=== PATIENT | female | born 1950 | race Caucasian/White ===

== ENCOUNTER → 2017-02-04 | Outpatient (CLI) | payer MEDICARE, OTHER ==
--- NOTE | 2017-02-05 19:34 | Diagnostic Imaging Report ---
Bilateral screening mammogram 2D views with tomosynthesis The current study was also evaluated with a Computer Aided Detection (CAD) system. INDICATION: Screening. No current complaints stated on the questionnaire. COMPARISON: None available. FINDINGS: The breasts are composed of scattered fibroglandular densities. There are occasional punctate calcifications seen. Allowing for technique and positional differences, no suspicious change is seen. IMPRESSION: No significant change. ACR BI-RADS Category 2: Benign findings. Result letter will be mailed to the patient. Note: At least 10% of breast cancer is not imaged by mammography. Dictated by: Dictated on workstation # [id number]
== END ==
LOC: RAD 14:38
PROVIDERS: ATTEND Nurse Practitioner Family
DX: Z12.31 Encounter for screening mammogram for malignant neoplasm of breast (principal)
CPT/HCPCS: 77067

== ENCOUNTER 2017-11-11 07:35 | Outpatient (CLI) | payer MEDICARE, OTHER ==
[~2017-11-11] VITALS: Ht 170.2 cm; Wt 89.8 kg
[2017-11-11] MEDS ORDERED: LISI40TA PO (10:36)
[2017-11-11] MEDS ORDERED: METO-333 PO (10:36)
[2017-11-12] MEDS ORDERED: HYDR-3812 PO (13:46)
== END 2017-11-11 11:34 ==
LOC: PREOP 07:35
PROVIDERS: ATTEND Surgery
DX: Z01.818 Encounter for other preprocedural examination (principal)

== ENCOUNTER 2017-11-12 07:57 | Day surgery (SDC) | payer MEDICARE, OTHER ==
[~2017-11-12] VITALS: Ht 170.2 cm; Wt 89.8 kg
[~2017-11-12 07:57] MED LIST: LISI40TA PO; METO-333 PO
[2017-11-12] MEDS ORDERED: CLINDAMYCIN 600 MG/50 ML IVPB 50 ML IV ONE (08:45)
[2017-11-12] MEDS ORDERED: MEPERIDINE (DEMEROL) INJ 50 MG/ML IVP PRN (09:30)
[2017-11-12] MEDS ORDERED: morphine INJ 10 MG/ML 1ML (SYR OR VIAL) IVP PRN ×2 (09:30→13:30)
[2017-11-12] MEDS ORDERED: fentaNYL INJECTION 100 MCG/2 ML AMP IVP PRN (09:30)
[2017-11-12] MEDS ORDERED: ONDANSETRON 4 MG/2 ML (SDV) Z0FRAN IVP PRN ×2 (09:30→13:30)
[2017-11-12] MEDS: LACTATED RINGERS 1,000 ML IV PRN ×2 (09:30→12:50)
[2017-11-12] MEDS ORDERED: proPOfol 200 MG/20 ML (DIPRIVAN) VIAL IV ONE ×2 (09:36→12:46)
[2017-11-12] MEDS ORDERED: LIDOCAINE 2% 20 ML (XYLOCAINE) VIAL ONE (09:36)
[2017-11-12] MEDS ORDERED: MIDAZOLAM 2 MG/2 ML (VERSED) VIAL ONE (09:38)
[2017-11-12] MEDS ORDERED: BUP/EPI 0.5% 1:200,000 (SENSORCAINE) 30 ML VIAL ONE (09:40)
[2017-11-12 10:12] VITALS: BP 186/88
--- NOTE | 2017-11-12 11:06 | Progress Note-Pre Operative ---
Pre-Operative Progress Note H&P Reviewed The H&P was reviewed, patient examined and no changes noted. 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
--- NOTE | 2017-11-12 13:31 | Anesthesia-General Post-Op ---
MAC Patient Condition Mental Status/LOC: Same as Preop Cardiovascular: Satisfactory Nausea/Vomiting: Absent Respiratory: Satisfactory Pain: Controlled Complications: Absent Post Op Complications Complications None Follow Up Care/Instructions Patient Instructions None needed. Anesthesiology Discharge Order Discharge Order Patient is doing well, no complaints, stable vital signs, no apparent adverse anesthesia problems. No complications reported per nursing. JAH SMALL CRNA November 12, 2017 13:31
--- NOTE | 2017-11-12 13:45 | Progress Note-Post Operative ---
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 Anesthesia Type CS with local Estimated Blood Loss Estimated blood loss (mL): minimal Specimens/Packing Specimens Removed left upper chest skin lesion NAHOMY MORGAN MD November 12, 2017 1:45 pm
[2017-11-12] MEDS ORDERED: HYDR-3812 PO (13:46)
--- NOTE | 2017-11-12 13:48 | Discharge Inst-Surgical ---
D/C Lap Instructions-EDDIE New, Converted, or Re-Newed RX: RX on Chart Follow Up Appt in 2 weeks Activity as tolerated Regular Diet Symptoms to Report: Fever over 101 degree F, Nausea/Vomiting Infection Signs and Symptoms to report: Increased redness, Foul odor of wound, Increased drainage Bathing instructions: May shower Operative Area Clean/Dry; Keep incision clean/dry If any problems/questions: Contact your physician or go to Emergency Room NAHOMY MORGAN MD November 12, 2017 1:48 pm
[2017-11-12 13:55] VITALS: BP 158/66
[2017-11-12 14:25] VITALS: BP 170/84
[2017-11-12 14:55] VITALS: BP 168/81
--- NOTE | 2017-11-12 18:06 | OPERATIVE REPORT ---
DATE OF SERVICE: 11/12/2017 ATTENDING PRIMARY CARE PHYSICIAN: Dr. Richard. PREOPERATIVE DIAGNOSIS: Lesion mid upper chest left of midline, initially detected 06/2017 with significant growth which became infected. 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 There was also hypertrophic scar identified 5 cm in length. POSTOPERATIVE DIAGNOSIS: Lesion mid upper chest left of midline, initially detected 06/2017 with significant growth which became infected. 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 There was also hypertrophic scar identified 5 cm in length. PROCEDURE: Excision full thickness scar and skin with frozen section 5 x 2 cm in size with intermediate flap reconstruction. SURGEON: Dr. Morgan. ASSEMBLER SEMICONDUCTOR: Jesus Valdivia APRN. ANESTHESIA: Monitored anesthesia care with local. ESTIMATED BLOOD LOSS: Minimal. FINDINGS: No obvious skin tumor. Preliminary pathology reports as negative for squamous cell carcinoma. DISPOSITION: The patient tolerated the procedure well. INDICATIONS: The patient is a 67-year-old female who we have seen before in the past. She had had lesions removed from her right lower extremity which were consistent with basal and squamous cell skin cancer. She also has had a benign lesion removed as well. She had a lesion of the mid upper chest left of midline which was initially detected 06/2017 with significant rapid growth. After one month, the lesion became infected. The lesion was excised on 09/03/2017 which did come back as a spindle cell squamous cell carcinoma with focal extension into the deep margin of resection. There was a hypertrophic scar also identified with the dimensions of the lesion approximately 5 x 2 cm in size. DESCRIPTION OF PROCEDURE: The patient was brought to the operating room, laid supine on the table. After adequate IV pain and sedating medications and monitored anesthesia care, the chest and neck were prepped and draped in standard surgical fashion. A 0.5% Marcaine with epinephrine was then used to anesthetize the overlying skin. Also more distal superiorly and inferiorly, for our flaps. The lesion was then fully excised to the level of the subcutaneous fat using a 15 blade. This was sent to pathology. The subcutaneous fat and skin flaps were then created using electrocautery superiorly and inferiorly using electrocautery. Once this was achieved, there was a good approximation of the skin edges without any tension. We then proceeded with layered closure using a 3-0 Vicryl interrupted sutures on the fascia followed by the subcutaneous tissue, followed by 0 Monocryl running subcuticular suture. Wound was then cleaned and covered with Dermabond. The preliminary pathology was negative for malignancy. The patient tolerated the procedure well. We will start IV and oral pain medication. Once she is tolerating clears, has good pain control with oral pain medication, we will discharge her home. We will have her follow up in approximately two weeks to reevaluate the wound. Job ID: [id number] DocumentID: [id number] Dictated Date: 11/12/2017 13:26:39 Dinkey Locomotive Operator Date: 11/12/2017 18:05:35 Dictated By: NAHOMY MORGAN MD MTDD
== END 2017-11-12 14:55 | disposition home or self-care (01) ==
LOC: SDC 07:57
PROVIDERS: ATTEND Surgery
DX: L91.0 Hypertrophic scar (principal); Z85.828 Personal history of other malignant neoplasm of skin; I10 Essential (primary) hypertension; Z79.899 Other long term (current) drug therapy
CPT/HCPCS: 87081; 88304; 88331

== ENCOUNTER → 2018-05-04 | Outpatient (CLI) | payer MEDICARE, OTHER ==
[~2018-05-04] MED LIST changes: +HYDR-3812 PO
--- NOTE | 2018-05-04 18:57 | Diagnostic Imaging Report ---
INDICATION: Routine screening. Comparison is made with prior mammogram from 02/04/2017. 2-D and 3-D bilateral screening mammography was performed with computer-aided detection (CAD) system. FINDINGS: Scattered fibroglandular densities are identified bilaterally. There are benign calcifications bilaterally. No dominant mass or malignant-appearing microcalcifications are seen. The axillae are unremarkable. IMPRESSION: No mammographic features suspicious for malignancy are identified. ACR BI-RADS Category 2: Benign findings. Result letter will be mailed to the patient. Note: At least 10% of breast cancer is not imaged by mammography. Dictated by: Dictated on workstation # [id number]
== END ==
LOC: RAD 10:50
PROVIDERS: ATTEND Nurse Practitioner Family
DX: Z12.31 Encounter for screening mammogram for malignant neoplasm of breast (principal)
CPT/HCPCS: 77067

== ENCOUNTER → 2019-05-03 | Outpatient (CLI) | payer MEDICARE, OTHER ==
--- NOTE | 2019-05-03 15:44 | Diagnostic Imaging Report ---
INDICATION: Postmenopausal screening for osteoporosis. COMPARISON: None. FINDINGS: AP Spine L1-L4: [BMD (g/cm2): 1.161] [T-Score: -0.3] [Z-Score: 0.8] [BMD Previous: na] [BMD % Change: na] LT Hip Neck: [BMD (g/cm2): 0.848] [T-Score: -1.4] [Z-Score: 0.1] LT Hip Total: [BMD (g/cm2):0.945] [T-Score:-0.5] [Z-Score: 0.5] [BMD Previous: na] [BMD % Change: na] RT Hip Neck: [BMD (g/cm2):0.890] [T-Score:-1.1] [Z-Score:0.2] RT Hip Total: [BMD (g/cm2):0.986] [T-score:-0.2] [Z-Score:0.8] [BMD Previous:na] [BMD % Change:na] *Indicates significant change from prior examination based on 95% confidence level. World Health Organization criteria for BMD interpretation classify patients as Normal (T-score at or above -1.0), Osteopenic (T-score between -1.0 and -2.5) or Osteoporotic (T-score at or below -2.5). LIMITATIONS AND MODIFICATION: None. FRACTURE RISK (FRAX SCORE): The ten year probability of (%): Major Osteoporotic Fracture: [9.3] Hip Fracture: [1.1] IMPRESSION: 1. Osteopenia (Low bone mass). 2. Baseline examination. 3. See below National Osteoporosis Foundation guidelines on when to potentially initiate pharmacologic therapy. Based on the National Osteoporosis Foundation Guidelines, pharmacologic treatment should be initiated in any of the following, unless clinical conditions suggest otherwise: * Any patient with prior fragility fracture of the hip or vertebrae. A spine fracture indicates 5X risk for subsequent spine fracture and 2X risk for subsequent hip fracture. * Osteoporosis (T-score <-2.5). * Postmenopausal women and men age 50 and older with low bone mass/osteopenia (T-score between -1.0 and -2.5) by DXA and 10-year major osteoporotic fracture greater than 20% or a 10-year probability of hip fracture greater than 3%. These fracture risks are supplied above in the FRAX score, if applicable. * Clinician judgement and/or patient preferences may indicate treatment for people with 10-year fracture probabilities above or below these levels. Dictated by: Dictated on workstation # [id number]
== END ==
LOC: RAD 12:39
PROVIDERS: ATTEND Family Medicine
DX: Z13.820 Encounter for screening for osteoporosis (principal); M85.89 Other specified disorders of bone density and structure, multiple sites; Z78.0 Asymptomatic menopausal state
CPT/HCPCS: 77080

== ENCOUNTER → 2019-05-11 | Outpatient (CLI) | payer MEDICARE, OTHER ==
--- NOTE | 2019-05-12 09:30 | Diagnostic Imaging Report ---
INDICATION: Routine screening. COMPARISON is made with prior mammogram from 05/04/2018 and 02/04/2017. TECHNIQUE: 2-D and 3-D bilateral screening mammography was performed with CAD. FINDINGS: Scattered fibroglandular densities are identified bilaterally. Occasional benign-appearing calcifications are noted. No mass or malignant-appearing microcalcifications are seen. Axillae are unremarkable. IMPRESSION: BI-RADS Category 2 No mammographic features suspicious for malignancy are identified. Dictated by: Dictated on workstation # [id number]
== END ==
LOC: RAD 14:38
PROVIDERS: ATTEND Family Medicine
DX: Z12.31 Encounter for screening mammogram for malignant neoplasm of breast (principal)
CPT/HCPCS: 77067

== ENCOUNTER → 2020-03-15 | Outpatient (CLI) | payer MEDICARE, OTHER ==
[~2020-03-15] MED LIST changes: +ACHD5005 PO; -HYDR-3812 PO
[2020-03-15 12:31] LABS: MEAN PLATELET VOLUME 9.9 FL (7.4-10.4); WHITE BLOOD COUNT 5.7 10^3/uL (4.3-11.0)
[2020-03-15 12:51] LABS: ALANINE AMINOTRANSFERASE 16 U/L (0-55); ALBUMIN 4.2 GM/DL (3.2-4.5); ALKALINE PHOSPHATASE 66 U/L (40-136); BILIRUBIN,TOTAL 1.7 MG/DL (0.1-1.0); BUN/CREATININE RATIO 15; CALCIUM 9.2 MG/DL (8.5-10.1); CARBON DIOXIDE 26 MMOL/L (21-32); CHLORIDE 104 MMOL/L (98-107); CREATINE KINASE 68 U/L (29-168); CREATININE SERUM 0.72 MG/DL (0.60-1.30); GFR ESTIMATED > 60; GLUCOSE 101 MG/DL (70-105); POTASSIUM 3.5 MMOL/L (3.6-5.0); SODIUM 139 MMOL/L (135-145); TOTAL PROTEIN 6.6 GM/DL (6.4-8.2)
== END ==
LOC: CARD 11:53
PROVIDERS: ATTEND Nurse Practitioner Family
DX: I10 Essential (primary) hypertension (principal); R07.9 Chest pain, unspecified
CPT/HCPCS: 36415; 80053; 82550; 84484; 85027; 93005

== ENCOUNTER → 2020-05-16 | Outpatient (CLI) | payer MEDICARE, OTHER ==
--- NOTE | 2020-05-17 09:31 | Diagnostic Imaging Report ---
Indication: Routine screening. Comparison is made with prior mammogram 05/11/2019 and 05/04/2018. 2-D and 3-D bilateral screening mammography was performed with CAD. Scattered fibroglandular densities are identified bilaterally. The parenchymal pattern is stable. No mass or malignant appearing microcalcifications are seen. Axillae are unremarkable. IMPRESSION: BI-RADS Category 1 No mammographic features suspicious for malignancy are identified. ACR BI-RADS Category 1: Negative. Result letter will be mailed to the patient. Note: At least 10% of breast cancer is not imaged by mammography. Dictated by: Dictated on workstation # [id number]
== END ==
LOC: RAD 14:45
PROVIDERS: ATTEND Family Medicine
DX: Z12.31 Encounter for screening mammogram for malignant neoplasm of breast (principal)
CPT/HCPCS: 77063; 77067

== ENCOUNTER → 2021-05-17 | Outpatient (CLI) | payer MEDICARE, OTHER ==
[~2021-05-17] MED LIST changes: -LISI40TA PO; +LISI40TA9 PO
--- NOTE | 2021-05-17 13:45 | Diagnostic Imaging Report ---
INDICATION: Routine screening. Comparison is made with prior mammogram 05/16/2020 and 05/11/2019. 2-D and 3-D bilateral screening mammography was performed with CAD. Scattered fibroglandular densities are identified bilaterally. No mass or malignant-appearing microcalcifications are seen. Occasional benign calcifications noted. Axillae are unremarkable. IMPRESSION: No mammographic features suspicious for malignancy are identified. BI-RADS Category 2 ACR BI-RADS Category 2: Benign findings. Result letter will be mailed to the patient. Note: At least 10% of breast cancer is not imaged by mammography. Dictated by: Dictated on workstation # [id number]
== END ==
LOC: RAD 08:45
PROVIDERS: ATTEND Family Medicine
DX: Z12.31 Encounter for screening mammogram for malignant neoplasm of breast (principal); M81.0 Age-related osteoporosis without current pathological fracture
CPT/HCPCS: 77063; 77067

== ENCOUNTER 2021-05-28 06:47 | Outpatient (CLI) | payer MEDICARE, OTHER ==
[~2021-05-28] VITALS: Ht 170.2 cm; Wt 77.3 kg
[2021-05-28] MEDS ORDERED: METO50TA7 PO (10:17)
[2021-05-30] MEDS ORDERED: ACHD5005 PO (09:25)
== END 2021-05-28 10:33 | disposition home or self-care (01) ==
LOC: PREOP 06:47
PROVIDERS: ATTEND Surgery
DX: Z01.818 Encounter for other preprocedural examination (principal)

== ENCOUNTER 2021-05-30 09:01 | Day surgery (SDC) | payer MEDICARE, OTHER ==
[~2021-05-30] VITALS: Ht 170.2 cm; Wt 77.3 kg
[2021-05-30] VITALS (10 sets, daily range): BP systolic 125–168; BP diastolic 64–89
[~2021-05-30 09:01] MED LIST changes: +METO50TA7 PO
[2021-05-30] MEDS ORDERED: LIDOCAINE/EPI 1%-1:100,000 (XYLOCAINE) 20ML ONE (09:09)
--- NOTE | 2021-05-30 09:23 | Progress Note-Pre Operative ---
Pre-Operative Progress Note H&P Reviewed The H&P was reviewed, patient examined and no changes noted. Date Seen by Provider: May 30, 2021 Time Seen by Provider: 09:20 Date H&P Reviewed: May 30, 2021 Time H&P Reviewed: 09:15 Pre-Operative Diagnosis: Left upper arm skin lesions x2 ERNESTINE BARRAGAN APRN May 30, 2021 09:23
[2021-05-30] MEDS ORDERED: ACHD5005 PO ×2 (09:25)
--- NOTE | 2021-05-30 09:26 | Discharge Inst-Surgical ---
D/C Lap Instructions-KIDO Reconcile Patient Problems Problems Reviewed?: Yes New, Converted, or Re-Newed RX: RX on Chart Follow Up Appt in 2 weeks Activity as tolerated No driving for 24 hours No driving while on pain medications Incentive Spirometry use every 2 hours while awake Regular Diet Symptoms to Report: Fever over 101 degree F, Nausea/Vomiting Infection Signs and Symptoms to report: Increased redness, Foul odor of wound, Increased drainage Bathing instructions: May shower Operative Area Clean/Dry; Keep incision clean/dry If any problems/questions: Contact your physician or go to Emergency Room ERNESTINE BARRAGAN APRN May 30, 2021 09:26
[2021-05-30] MEDS ORDERED: morphine INJ 10 MG/ML 1ML (SYR OR VIAL) IVP PRN (09:30)
[2021-05-30] MEDS ORDERED: ONDANSETRON 4 MG/2 ML (SDV) Z0FRAN IVP PRN ×2 (09:30→12:45)
[2021-05-30] MEDS ORDERED: HYDROcodone/APAP 5 MG/325 MG (LORTAB) TAB PO ONE (09:30)
[2021-05-30] MEDS ORDERED: ACETAMINOPHEN 325 MG TABLET PO PRN (09:30)
[2021-05-30] MEDS ORDERED: CLINDAMYCIN 600 MG/50 ML IVPB 50 ML IV ONE ×2 (09:34→09:45)
[2021-05-30] MEDS ORDERED: LACTATED RINGERS 1,000 ML IV PRN (09:45)
[2021-05-30] MEDS ORDERED: proPOfol 200 MG/20 ML (DIPRIVAN) VIAL IV ONE (10:58)
[2021-05-30] MEDS ORDERED: ONDANSETRON 4 MG/2 ML (SDV) Z0FRAN ONE (10:58)
[2021-05-30] MEDS ORDERED: SEVOFLURANE (ULTANE) 15 ML INHAL SOLN ONE (10:58)
[2021-05-30] MEDS ORDERED: LIDOCAINE PF 2% 5 ML (XYLOCAINE) VIAL ONE (10:58)
[2021-05-30] MEDS ORDERED: MIDAZOLAM 2 MG/2 ML (VERSED) VIAL ONE (10:59)
[2021-05-30] MEDS ORDERED: fentaNYL INJ 100 MCG/2 ML AMP ONE (10:59)
--- NOTE | 2021-05-30 12:11 | Progress Note-Post Operative ---
Post-Operative Progess Note Surgeon (s)/Pharmacy Scheduler (s) Surgeon NAHOMY MORGAN MD Pharmacy Scheduler: licha darnell PRODUCE DEPARTMENT MANAGER Pre-Operative Diagnosis Left upper arm skin lesions x2 Post-Operative Diagnosis same(anterior 4x3cm, posterior 3x3cm) Procedure & Operative Findings Date of Procedure 05/30/21 Procedure Performed/Findings excison left upper extremity skin lesions with complex flap closure(anterior 4x3cm, posterior 3x3cm) Anesthesia Type general LMA with local Estimated Blood Loss Estimated blood loss (mL): minimal Specimens/Packing Specimens Removed left upper arm anterior and posterior skin lesions. NAHOMY MORGAN MD May 30, 2021 12:11
--- NOTE | 2021-05-30 12:36 | Anesthesia-General Post-Op ---
General Patient Condition Mental Status/LOC: Same as Preop Cardiovascular: Satisfactory Nausea/Vomiting: Absent Respiratory: Satisfactory Pain: Controlled Complications: Absent Post Op Complications Complications None Follow Up Care/Instructions Patient Instructions None needed. Anesthesia/Patient Condition Patient Condition Patient is doing well, no complaints, stable vital signs, no apparent adverse anesthesia problems. No complications reported per nursing. TAHMINA REYES CRNA May 30, 2021 12:36
[2021-05-30] MEDS ORDERED: fentaNYL INJ 100 MCG/2 ML AMP IVP ONE (12:45)
[2021-05-30] MEDS ORDERED: morphine INJ 10 MG/ML 1ML (SYR OR VIAL) IVP ONE (12:45)
[2021-05-30] MEDS ORDERED: MEPERIDINE (DEMEROL) INJ 50 MG/ML IVP ONE (12:45)
--- NOTE | 2021-05-30 22:04 | OPERATIVE REPORT ---
DATE OF SERVICE: 05/30/2021 ATTENDING PRIMARY CARE PHYSICIAN: Dr. Mi Richard. INDICATIONS: The patient is a 70-year-old female known to us. She has had multiple skin lesions removed in the past of both the chest, upper and lower extremities. Some of these have come back basal cell as well as squamous cell skin cancers. She presented to the office with two larger lesions of the left upper and lateral left arm. She reports that the lesions had developed and grown in size and she did use Efudex cream; however, since that time, the lesion has opened up and grown exponentially in size. The anterior lesion was 4 x 3 cm in size and the posterior lesion approximately 3 x 3 cm in size. DESCRIPTION OF PROCEDURE: The patient was brought to the operating room, laid supine on the table. After adequate IV pain and sedative medications and general laryngeal mask airway intubation, the left upper extremity was prepped and draped in standard surgical fashion. We then proceeded with excision of the anterior lesion, which was 4 x 3 cm in size, encompassing the full-thickness skin into the subcutaneous tissue was identified using a 15 blade. The entire lesion was then removed from the subcutaneous tissue using electrocautery with visualization of good hemostasis. We then proceeded with a complex flap closure creating lateral tissue flaps along the subcutaneous plane to allow for closure without any tension. We then proceeded with a subcutaneous subcuticular layer using interrupted 3-0 Vicryl sutures. Skin was then closed using 4-0 nylon interrupted sutures. In a similar manner, the posterior lesion was then excised. This lesion was 3 x 3 cm in size and excised using a 15 blade to the depth of the subcutaneous tissue. Good hemostasis was achieved. We then proceeded with superior and inferior subcutaneous flaps for this lesion to close without any tension. The subcuticular layer was then reapproximated using 3-0 Vicryl interrupted sutures. Skin was closed using 4-0 nylon interrupted sutures. Both lesions were then cleaned and covered with sterile gauze. The patient tolerated the procedure well. We will have her follow up in the office in approximately two weeks to evaluate the wounds and to remove the external sutures. Job ID: [id number] DocumentID: [id number] Dictated Date: 05/30/2021 14:59:57 Business Services Officer Date: 05/30/2021 22:03:41 Dictated By: NAHOMY MORGAN MD
== END 2021-05-30 14:35 | disposition home or self-care (01) ==
LOC: SDC 09:01
PROVIDERS: ATTEND Surgery
DX: L98.9 Disorder of the skin and subcutaneous tissue, unspecified (principal); I10 Essential (primary) hypertension; Z79.899 Other long term (current) drug therapy; Z85.828 Personal history of other malignant neoplasm of skin; Z83.3 Family history of diabetes mellitus
CPT/HCPCS: 87081; 88305

== ENCOUNTER → 2021-06-04 | Outpatient (CLI) | payer MEDICARE, OTHER ==
--- NOTE | 2021-06-04 10:16 | Diagnostic Imaging Report ---
INDICATION: 70-year-old postmenopausal female. COMPARISON: 05/03/2019 FINDINGS: AP Spine L1-L4: [BMD (g/cm2): 1.239] [T-Score: 0.3] [Z-Score: 1.7] [BMD Previous: 1.161] [BMD % Change: 6.7] LT Hip Neck: [BMD (g/cm2): 0.849] [T-Score: -1.4] [Z-Score: 0.1] LT Hip Total: [BMD (g/cm2):0.964] [T-Score:-0.3] [Z-Score: 0.9] [BMD Previous: 0.945] [BMD % Change: 2.0] RT Hip Neck: [BMD (g/cm2):0.874] [T-Score:-1.2] [Z-Score:0.3] RT Hip Total: [BMD (g/cm2):1.007] [T-score:0.0] [Z-Score:1.3] [BMD Previous:0.986] [BMD % Change:2.1] *Indicates significant change from prior examination based on 95% confidence level. World Health Organization criteria for BMD interpretation classify patients as Normal (T-score at or above -1.0), Osteopenic (T-score between -1.0 and -2.5) or Osteoporotic (T-score at or below -2.5). LIMITATIONS AND MODIFICATION: None. FRACTURE RISK (FRAX SCORE): The ten year probability of (%): Major Osteoporotic Fracture: [NA] Hip Fracture: [NA] IMPRESSION: 1. Normal bone mineral density. 2. No significant change in bone mineral density since prior examination. 3. See below National Osteoporosis Foundation guidelines on when to potentially initiate pharmacologic therapy. Based on the National Osteoporosis Foundation Guidelines, pharmacologic treatment should be initiated in any of the following, unless clinical conditions suggest otherwise: * Any patient with prior fragility fracture of the hip or vertebrae. A spine fracture indicates 5X risk for subsequent spine fracture and 2X risk for subsequent hip fracture. * Osteoporosis (T-score <-2.5). * Postmenopausal women and men age 50 and older with low bone mass/osteopenia (T-score between -1.0 and -2.5) by DXA and 10-year major osteoporotic fracture greater than 20% or a 10-year probability of hip fracture greater than 3%. These fracture risks are supplied above in the FRAX score, if applicable. * Clinician judgement and/or patient preferences may indicate treatment for people with 10-year fracture probabilities above or below these levels. Dictated by: Dictated on workstation # [id number]
== END ==
LOC: RAD 10:00
PROVIDERS: ATTEND Nurse Practitioner Family
DX: Z78.0 Asymptomatic menopausal state (principal)
CPT/HCPCS: 77080

== ENCOUNTER 2022-01-08 07:42 | Outpatient (CLI) | payer MEDICARE, OTHER ==
[~2022-01-08] VITALS: Ht 170.2 cm; Wt 74.8 kg
== END 2022-01-08 08:55 | disposition home or self-care (01) ==
LOC: PREOP 07:42
PROVIDERS: ATTEND Surgery
DX: Z01.818 Encounter for other preprocedural examination (principal)

== ENCOUNTER 2022-01-15 09:18 | Day surgery (SDC) | payer MEDICARE, OTHER ==
[~2022-01-15] VITALS: Ht 170.2 cm; Wt 74.8 kg
[2022-01-15] MEDS ORDERED: LACTATED RINGERS 1,000 ML IV ONE (09:25)
[2022-01-15] MEDS ORDERED: LIDOCAINE JELLY 2% 6 ML SYRINGE MM PRN (09:30)
[2022-01-15] MEDS ORDERED: LACTATED RINGERS 1,000 ML IV STA (09:30)
[2022-01-15 09:50] VITALS: BP 167/75
[2022-01-15] MEDS ORDERED: PROPOFOL INJECTION 50 ML IV ONE (09:50)
--- NOTE | 2022-01-15 11:05 | Progress Note-Pre Operative ---
Pre-Operative Progress Note H&P Reviewed The H&P was reviewed, patient examined and no changes noted. Date Seen by Provider: Jan 15, 2022 Time Seen by Provider: 10:30 Date H&P Reviewed: Jan 15, 2022 Time H&P Reviewed: 10:30 Pre-Operative Diagnosis: NAHOMY Donaldson MD Jan 15, 2022 11:05
--- NOTE | 2022-01-15 11:06 | Discharge Inst-Surgical ---
D/C Lap Instructions-EDDIE Follow Up Activity as tolerated High Fiber Diet 25g or more per day Avoid Alcohol, Caffeine, Spicy [place] and Acid foods. Drink 64 fluid oz or more of fluids per day. Symptoms to Report: Fever over 101 degree F, Nausea/Vomiting If any problems/questions: Contact your physician or go to Emergency Room NAHOMY MORGAN MD Jan 15, 2022 11:06
[2022-01-15] MEDS ORDERED: ONDANSETRON 4 MG/2 ML (SDV) Z0FRAN IVP PRN (11:15)
[2022-01-15] MEDS ORDERED: ONDANSETRON 4 MG (ZOFRAN) ORAL DISSOLVE TAB PO PRN (11:15)
[2022-01-15 11:45] VITALS: BP 168/72
[2022-01-15 11:50] VITALS: BP 135/60
[2022-01-15 11:53] VITALS: BP 133/61
--- NOTE | 2022-01-15 11:56 | Progress Note-Post Operative ---
Post-Operative Progess Note Surgeon (s)/Technology Development Intern (s) Surgeon NAHOMY MORGAN MD Technology Development Intern: none Pre-Operative Diagnosis screening Post-Operative Diagnosis mild chronic stage 2 ext and int hemorhoids, mild sigmoid diverticulosis. Procedure & Operative Findings Date of Procedure 01/15/22 Procedure Performed/Findings colonoscopy Anesthesia Type mac Estimated Blood Loss Estimated blood loss (mL): minimal Specimens/Packing Specimens Removed none NAHOMY MORGAN MD Jan 15, 2022 11:56
[2022-01-15 12:25] VITALS: BP 155/67
--- NOTE | 2022-01-15 13:24 | Anesthesia-General Post-Op ---
MAC Patient Condition Mental Status/LOC: Same as Preop Cardiovascular: Satisfactory Nausea/Vomiting: Absent Respiratory: Satisfactory Pain: Controlled Complications: Absent Post Op Complications Complications None Follow Up Care/Instructions Patient Instructions None needed. Anesthesiology Discharge Order Discharge Order Patient is doing well, no complaints, stable vital signs, no apparent adverse anesthesia problems. No complications reported per nursing. JUAN DIEGO ULLOA CRNA Jan 15, 2022 13:24
--- NOTE | 2022-01-15 18:57 | OPERATIVE REPORT ---
DATE OF SERVICE: 01/15/2022 ATTENDING PRIMARY CARE PHYSICIAN: Mi Richard MD PREOPERATIVE DIAGNOSIS: Screening colonoscopy. POSTOPERATIVE DIAGNOSES: Mild chronic stage 2 external and internal hemorrhoids, mild sigmoid diverticulosis. PROCEDURE: Colonoscopy. SURGEON: Nahomy Morgan MD ANESTHESIA: Monitored anesthesia care. ESTIMATED BLOOD LOSS: Minimal. FINDINGS: Mild chronic stage 2 external and internal hemorrhoids, mild sigmoid diverticulosis. DISPOSITION: The patient tolerated the procedure well. INDICATIONS: The patient is a 71-year-old female known to us. We have seen her for multiple skin lesions before in the past. She was seen in the office recently for a screening colonoscopy. She has never had a colonoscopy up to this point in her life. She does not report any major issues with diarrhea nor constipation as well as no red blood per rectum nor any dark tarry stools. She did have a Cologuard test, which was found to be positive. She does not report any family history of colon cancer. DESCRIPTION OF PROCEDURE: The patient was brought to the endoscopy suite, laid in the left lateral decubitus position. After adequate IV pain and sedative medications and monitored anesthesia care, a digital rectal examination was performed. Mild chronic stage II external and internal hemorrhoids were identified, which were not actively edematous nor inflamed and no bleeding. Normal sphincter tone was felt and there were no palpable masses. The endoscope was then intubated into the anus and rectum gently insufflated. The endoscope was then advanced through the first, second and third portion of esophagus at the level of the GE junction. The endoscope was then advanced through the valves of [place] of the rectum with no polyps or any neoplasms identified. Through the sigmoid colon, a mild sigmoid diverticulosis identified. The endoscope was then advanced to the remainder of the descending, transverse and ascending colon to the cecum, which were normal. There were no polyps or any neoplasms identified throughout the colon or rectum. The endoscope was then slowly withdrawn while taking a second look and suctioning of residual air with no additional findings. The patient tolerated the procedure well. We will recommend continued medical management with a high-fiber diet with a fiber supplement, which should equal or exceed 25 grams daily to promote soft consistency stools on a daily basis. If she is asymptomatic, she does not need another colonoscopy for another 10 years. Job ID: [id number] DocumentID: [id number] Dictated Date: 01/15/2022 11:49:25 Tobacco Hanger Date: 01/15/2022 18:56:48 Dictated By: NAHOMY MORGAN MD MTDD
== END 2022-01-15 12:35 | disposition home or self-care (01) ==
LOC: ENDO 09:18
PROVIDERS: ATTEND Surgery
DX: Z12.11 Encounter for screening for malignant neoplasm of colon (principal); K64.1 Second degree hemorrhoids; K57.30 Diverticulosis of large intestine without perforation or abscess without bleeding

== ENCOUNTER 2022-06-03 09:19 | Emergency (ER) | payer MEDICARE, OTHER ==
[~2022-06-03] VITALS: Ht 170 cm; Wt 72.5 kg
--- NOTE | 2022-06-03 11:18 | ED Upper Extremity ---
General Chief Complaint: Upper Extremity Stated Complaint: LT SHOULDER PAIN Nursing Triage Note: PT STATES ABOUT 10 DAYS AGO SHE OVERWORKED HER LT ARM, CC OF PAIN IN THE SHOULDER AND NUMBNESS IN LT ARM AND HAND, NO SPECIFIC INJURY Source: patient Exam Limitations: no limitations History of Present Illness Date Seen by Provider: Jun 03, 2022 Time Seen by Provider: 11:10 Initial Comments This is a 71-year-old female who presented to the ER with complaints of left shoulder pain. States that about 10 days ago she had overworked her arm with chores and has been having increasing pain in her shoulder since. She denies any fall or injury. No prior injury to her shoulder in the past. Pain is localized to the shoulder joint itself feels like she has some numbness in her fingers. She has limited range of motion states that she is unable to extend her arm out and lift upward she is able to reach up behind her back somewhat but any range of motion causes significant pain. Denies fever, chills, nausea, vomiting, neck pain. Allergies and Home Medications Allergies Coded Allergies: Penicillins (Verified Allergy, Mild, RASH, 05/28/21) adhesive tape (Verified Allergy, Unknown, 05/28/21) bacitracin (Verified Allergy, Unknown, REDDENS AND BLISTERS, 05/28/21) latex (Verified Allergy, Unknown, RASH, 05/28/21) neomycin (Verified Allergy, Unknown, REDDENS AND BLISTERS, 05/28/21) polymyxin B (Verified Allergy, Unknown, REDDENS AND BLISTERS, 05/28/21) Patient Home Medication List Home Medication List Reviewed: Yes Lisinopril (Lisinopril) 40 Mg Tablet, 40 MG PO DAILY, (Reported) Entered as Reported by: MIGUEL GOVEA on 11/11/17 1036 Methylprednisolone (Methylprednisolone Dose Pack) 4 Mg Tab.ds.pk, 4 MG PO UD Prescribed by: KLEVER BAKER on 06/03/22 1206 Metoprolol Succinate (Metoprolol Succinate) 50 Mg Tab.er.24h, 50 MG PO HS, (Reported) Entered as Reported by: JUSTINO MUNROE on 05/28/21 1017 Tramadol HCl (Tramadol HCl) 50 Mg Tablet, 50 MG PO Q6H PRN for PAIN Prescribed by: KLEVER BAKER on 06/03/22 1207 Review of Systems Constitutional: see HPI Past Bplmniz-Ixtydg-Kizbyh Hx Patient Social History Tobacco Use?: No Substance use?: No Alcohol Use?: No Immunizations Up To Date First/Initial COVID19 Vaccinat: OCTOBER 10, 2020 Second COVID19 Vaccination Chava: NOVEMBER 07, 2020 Third COVID19 Vaccination Date: NO Seasonal Allergies Seasonal Allergies: Yes Past Medical History Surgery/Hospitalization HX: HYPERTENSION Surgeries: Yes (TUBAL LIGATION, LEFT HAMMERTOE) Respiratory: No Currently Using CPAP: No Currently Using BIPAP: No Cardiac: Yes Hypertension Neurological: No Reproductive Disorders: No Female Reproductive Disorders: Denies [employer] History: Tubal Ligation Sexually Transmitted Disease: No HIV/AIDS: No Genitourinary: No Gastrointestinal: No Musculoskeletal: No Endocrine: No HEENT: Yes Cataract Loss of Vision: Bilateral Hearing Impairment: Hard of Hearing Cancer: Yes Skin What Type of Treatment Did You: Surgical Intervention Psychosocial: No Integumentary: Yes Recent Skin Changes Blood Disorders: No Adverse Reaction/Blood Tranf: No (N/A) Physical Exam Vital Signs Vital Signs - First Documented 06/03/22 09:39 Temp 36.0 Pulse 73 Resp 20 B/P (MAP) 178/79 (112) Pulse Ox 99 O2 Delivery Room Air Capillary Refill : Less Than 3 Seconds Height, Weight, BMI Height: 5'7.00" Weight: 198lbs. 0.0oz. 89.097724do; 25.00 BMI Method: General Appearance: WD/WN, no apparent distress HEENT: PERRL/EOMI, normal ENT inspection Neck: non-tender, full range of motion, normal inspection Cardiovascular: normal peripheral pulses, regular rate, rhythm Respiratory: normal breath sounds, no respiratory distress, no accessory muscle use Shoulder: normal inspection, bone tenderness; No deformity, No ecchymosis; limited ROM (left ), pain (left) Elbow/Forearm: normal inspection, non-tender, no evidence of injury, Right, Left Wrist: Yes normal inspection, Yes non-tender, Yes no evidence of injury Hand: normal inspection, non-tender, no evidence of injury, normal ROM Neurologic/Tendon: normal sensation, normal motor functions, normal tendon functions Neurologic/Psychiatric: no motor/sensory deficits, alert, normal mood/affect, oriented x 3 Skin: normal color, warm/dry Progress/Results/Core Measures Results/Orders My Orders Orders - SAMUEL,STORMY D ONCOLOGY RN Shoulder, Left, 3 Views (06/03/22 11:09) Fentanyl Inj (Sublimaze Injection) (06/03/22 11:45) Medications Given in ED Current Medications Medications Dose Ordered Sig/Stella Route Start Time Stop Time Status Last Admin Dose Admin Fentanyl Citrate 50 mcg ONCE ONCE IM 06/03/22 11:45 06/03/22 11:46 DC 06/03/22 11:42 50 MCG Vital Signs/I&O 06/03/22 06/03/22 06/03/22 09:39 11:42 12:16 Temp 36.0 36.0 36.0 Pulse 73 71 Resp 20 20 B/P (MAP) 178/79 (112) 154/70 Pulse Ox 99 99 O2 Delivery Room Air Room Air Blood Pressure Mean: 112 Diagnostic Imaging Diagonstic Imaging: Xray Comments [facility], [place] NAME: RAMIROMODESTA Rivera MED REC#: [id number] PT STATUS: REG ER : 1950 PHYSICIAN: KLEVER BAKER APRN ADMIT DATE: 06/03/22/ER Signed Date of Exam:06/03/22 SHOULDER, LEFT, 3 VIEWS HISTORY: Pain in the left shoulder. TECHNIQUE: Three views of the left shoulder. COMPARISON: None. FINDINGS: No acute fracture or dislocation is seen in the left shoulder. Alignment is normal. There is severe degenerative change in the acromioclavicular joint and mild in the glenohumeral joint. There is a large calcification adjacent to the greater tuberosity of the humeral head. This measures up to 2.3 cm in diameter. IMPRESSION: 1. No acute osseous abnormality seen in the left shoulder. 2. Calcific tendinitis in the left rotator cuff. 3. 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 Dictated by: Dictated on workstation # [id number] Dict: 06/03/22 1132 Trans: 06/03/22 1202 [id number] Interpreted by: THUY MOON MD Electronically signed by: THUY MOON MD 06/03/22 1202 Departure Impression Primary Impression: Tendonitis of shoulder, left Disposition: HOME, SELF-CARE Condition: Improved Departure-Patient Inst. Referrals: CAMILO LUCAS MD (PCP/Family) Primary Care Physician Patient Instructions: Shoulder Tendinopathy (DC) Add. Discharge Instructions: Plan: 1. Ice and heat 20 minutes at a time 4-5x per day. 2. Take Steroids daily with food to prevent GI upset. 3. Take Tramadol every 6 hours as directed for pain. Do not drive while taking. 4. Follow up with your primary care provider next week. Start exercises when pain starts to reduce. Let pain be your guide with number of exercises. All discharge instructions reviewed with patient and/or family. Voiced understanding. Scripts Methylprednisolone (Methylprednisolone Dose Pack) 4 Mg Tab.ds.pk 4 MG PO UD for 6 Days, #21 PKG 0 Refills PER DOSE PACK INSTRUCTIONS Prov: KLEVER BAKER ONCOLOGY RN 06/03/22 Tramadol HCl (Tramadol HCl) 50 Mg Tablet 50 MG PO Q6H PRN for PAIN for 3 Days, #10 TAB 0 Refills Prov: KLEVER BAKER ONCOLOGY RN 06/03/22 KLEVER BAKER ONCOLOGY RN Jun 03, 2022 11:18
[2022-06-03] MEDS ORDERED: fentaNYL INJ 100 MCG/2 ML AMP IM ONE (11:45)
--- NOTE | 2022-06-03 11:45 | Diagnostic Imaging Report ---
HISTORY: Pain in the left shoulder. TECHNIQUE: Three views of the left shoulder. COMPARISON: None. FINDINGS: No acute fracture or dislocation is seen in the left shoulder. Alignment is normal. There is severe degenerative change in the acromioclavicular joint and mild in the glenohumeral joint. There is a large calcification adjacent to the greater tuberosity of the humeral head. This measures up to 2.3 cm in diameter. IMPRESSION: 1. No acute osseous abnormality seen in the left shoulder. 2. Calcific tendinitis in the left rotator cuff. 3. 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 Dictated by: Dictated on workstation # [id number]
[2022-06-03] MEDS ORDERED: TRM50T PO (12:06)
[2022-06-03] MEDS ORDERED: METH4TAB10 PO (12:06)
[2022-06-03 12:16] VITALS: BP 154/70
== END 2022-06-03 12:15 | disposition home or self-care (01) ==
LOC: EDUNIT# 09:19 → ER 09:20
DX: M77.8 Other enthesopathies, not elsewhere classified (principal)
CPT/HCPCS: 73030